=== PATIENT | female | born 1990 | race Two or more races ===

== ENCOUNTER 2024-12-14 19:01 | Emergency (ER) | payer OTHER ==
[~2024-12-14] VITALS: Ht 152.4 cm; Wt 81.6 kg
[2024-12-14] MEDS ORDERED: ACETAMINOPHEN 500 MG GEL..CAP PO ONE ×2 (19:45→19:46)
[2024-12-14 20:13] LABS: HEMATOCRIT 38.8 % (36.0-45.00); HEMOGLOBIN 12.4 g/dL (12.0-15.00); MEAN CELL VOLUME 78.1 fL (80.00-100.00); PLATELET COUNT 357 K/uL (150-450); RED BLOOD COUNT 4.97 M/uL (4.00-6.00); RED CELL DISTRIBUTION WIDTH 25.1 % (11.5-14.5)
[2024-12-14 20:21] LABS: PH,URINE 5.5 (5.0-8.0); URINE APPEARANCE Clear; URINE BILIRRUBIN Negative (NEGATIVE); URINE BLOOD Negative; URINE COLOR Yellow; URINE GLUCOSE Negative (NEGATIVE); URINE KETONE Negative (NEGATIVE); URINE LEUKOCYTE Negative; URINE NITRATE Negative; URINE PROTEIN Negative (NEGATIVE)
[2024-12-14 20:22] LABS: URINE BACTERIA 117.4 uL (0.0-1933); URINE EPITHELIAL CELLS 13.4 uL (0.0-38.8); URINE RBC 11.3 uL (0.0-20.8); URINE WBC 8.8 uL (0.0-23.2)
[2024-12-14] MEDS ORDERED: 0.9 % SODIUM CHLORIDE 1,000 ML IV ONE (20:45)
[2024-12-14] MEDS ORDERED: KETOROLAC TROMETHAMINE 30 MG VIAL IV ONE (20:45)
[2024-12-14] MEDS ORDERED: KETOROLAC TROMETHAMINE 30 MG VIAL ONE (20:57)
[2024-12-14 21:17] LABS: ALBUMIN 3.4 gm/dL (3.4-5.0); BILIRUBIN TOTAL 0.28 mg/dL (0.3-1.2); CALCIUM 9.8 mg/dL (8.5-10.1); CREATININE SERUM 0.64 mg/dL (0.55-1.02); GFR 106.22; GLOBULINA 4.2 G/DL (2.4-3.5); POTASSIUM 5.07 mEq/L (3.5-5.1); TOTAL PROTEIN 7.6 gm/dL (6.4-8.2)
[2024-12-14 21:33] LABS: INR 1.01; PARTIAL THROMBOPLASTIN TIME 31.7 SECONDS (22.0-34.0)
[2024-12-14] MEDS ORDERED: DICLOFENAC SODI50 MG PO (23:16)
== END 2024-12-14 23:37 ==
LOC: ER 19:03
PROVIDERS: General Practice
DX: D25.9 Leiomyoma of uterus, unspecified (principal); R10.2 Pelvic and perineal pain
CPT/HCPCS: 36415; 74177; 76830; Q9965